=== PATIENT | female | born 1980 ===

== ENCOUNTER 2019-07-11 05:28 | Inpatient (IN) | payer OTHER ==
[2019-07-11] MEDS: LACTATED RINGERS 1,000 ML IV SCH ×2 (05:50→07:08)
[2019-07-11] MEDS ORDERED: LACTATED RINGERS 1,000 ML ONE (05:51)
[2019-07-11 06:24] LABS: Hematocrit 42.9 % (30.3-42.9); Hemoglobin 14.5 gm/dl (10.1-14.3); Mean Corpuscular HGB Conc 34 % (30-34); Mean Corpuscular Volume 87 fl (79-97); Platelet Count 171 K/mm3 (140-440); Red Blood Count 4.93 M/mm3 (3.65-5.03); Red Cell Distribution Width 13.7 % (13.2-15.2)
[2019-07-11] MEDS ORDERED: METOCLOPRAMIDE 10 MG/2 ML INJ IV ONE (06:49)
[2019-07-11] MEDS ORDERED: BICITRA ORAL LIQD 30ML PO ONE (06:49)
[2019-07-11] MEDS ORDERED: FAMOTIDINE 20 MG/2 ML INJ IV ONE (06:49)
[2019-07-11] MEDS ORDERED: OXYTOCIN 20 UNIT/1000ML DRIP 20 UNITS/1,000 ML BAG IV SCH ×2 (07:00→11:00)
--- NOTE | 2019-07-11 07:00 | Anesthesia Consultation ---
Anesthesia Consult and Med Hx Date of service: 07/11/19 - Airway Anesthetic Teeth Evaluation: Good ROM Head & Neck: Adequate Mental/Hyoid Distance: Adequate Mallampati Class: Class II Intubation Access Assessment: Probably Good - Pulmonary Exam CTA: Yes - Cardiac Exam Cardiac Exam: RRR - Pre-Operative Health Status ASA Pre-Surgery Classification: ASA2 Proposed Anesthetic Plan: Spinal - Pulmonary Hx Smoking: No Hx Asthma: No Hx Pneumonia: No - Cardiovascular System Hx Hypertension: No - Hematic Hx Anemia: No - Other Systems Hx Substance Use: No Hx Obesity: No
--- NOTE | 2019-07-11 07:01 | Anesthesia Day of Surgery ---
Anesthesia Day of Surgery - Day of Surgery Patient Examined: Yes Patient H&P Reviewed: Yes Patient is NPO: Yes
--- NOTE | 2019-07-11 08:32 | History and Physical Report ---
History of Present Illness Date of examination: 07/11/19 Date of admission: 07/11/19 05:28 Chief complaint: Here for a repeat . History of present illness: G6. [id number]. Term preg. EDC 07/16/2019. Past History Past Surgical History: cholecystectomy, section - Obstetrical History Expected Date of Delivery: 07/16/19 Actual Gestation: 39 Week(s) 2 Day(s) : 6 Medications and Allergies Allergies Allergy/AdvReac Type Severity Reaction Status Date / Time No Known Allergies Allergy Unverified 07/11/19 06:05 Home Medications Medication Instructions Recorded Confirmed Last Taken Type No Known Home Medications [No 07/11/19 07/11/19 Unknown History Reported Home Medications] Active Meds: Active Medications Oxytocin/Sodium Chloride (Pitocin/Ns 20 Unit/1000ml Drip) 20 units in 1,000 mls @ 0 mls/hr IV TITR ELYSIA Lactated Ringer's (Lactated Ringers) 1,000 mls @ 2,250 mls/hr IV PREOP ELYSIA Stop: 07/12/19 07:27 Last Admin: 07/11/19 07:08 Dose: 2,250 mls/hr Documented by: Review of Systems Ears, nose, mouth and throat: sore throat - Vital Signs Vital signs: Vital Signs Pulse BP 82 137/93 07/11/19 05:59 07/11/19 05:59 Temp Pulse Resp BP Pulse Ox 99.2 F 82 16 137/93 07/11/19 06:08 07/11/19 06:08 07/11/19 06:08 07/11/19 06:08 - Physical Exam Lungs: Positive: Normal air movement Uterus: Positive: normal size, enlarged, normal contour. Negative: tender - Obstetrical FHR: auscultation normal Results Result Diagrams: 07/11/19 05:50 Abnormal lab results 07/11/19 Range/Units 05:50 Hgb 14.5 H (10.1-14.3) gm/dl All other labs normal. Assessment and Plan Term , For elective repeat . patient gave informed consent. - Patient Problems (1) Previous delivery, antepartum Current Visit: Yes Status: Acute
[2019-07-11] MEDS ORDERED: OXYTOCIN 10 UNIT/1 ML INJ ONE (08:56)
[2019-07-11] MEDS ORDERED: dexAMETHasone 20 MG/5 ML VIAL ONE (08:56)
[2019-07-11] MEDS ORDERED: METOPROLOL TARTRATE 5 MG/5 ML INJ IV ONE (08:56)
[2019-07-11] MEDS ORDERED: DEXMEDETOMIDINE 200 MCG/2 ML VIAL IV ONE (08:56)
[2019-07-11] MEDS ORDERED: KETOROLAC 30 MG/1 ML INJ ONE (08:56)
[2019-07-11] MEDS ORDERED: BUPIVACAINE/PF (0.5%) 5 MG/1 ML 30 ML VIAL INFILTRATI ONE (08:56)
[2019-07-11] MEDS ORDERED: HETASTARCH 6% 500 ML IV ONE (09:29)
--- NOTE | 2019-07-11 10:11 | Operative Report ---
Operative Report Operative Report: Date of surgery: July 11, 2019 Preoperative diagnoses: Term , previous section, previous midl ine subumbilical incision Postoperative diagnoses: The same. Operation: Lower segment transverse delivery Surgeon:Leni Mac MD [place] Skin Lifter: Padmini Reynoso CRNA Anesthesia: Spinal block Estimated blood loss:500 mL Complications: None Findings: There was a live baby boy in vertex, weight 7 pounds 11 ounces and Apgars 8/9. Both ovaries and fallopian tubes were grossly normal. The uterus was also grossly normal. No peritoneal adhesions were found within the pelvis. Procedure in detail: The patient was taken to the operating room and given a spinal block. Patient was placed in the straight supine position and a Zambrano catheter was inserted. The patient was prepped in the abdomen. The drapes were placed. A timeout was done. With the go ahead from the commercial crabber, a subumbilical midline incision was made. This incision was carried across the subcutaneous layer to the fascia which was also divided transversely. The recti abdominis muscle flaps were stripped from the fascia using a combination of blunt and sharp dissections. The muscles were in the midline to gain access to the anterior parietal peritoneum which was divided after excluding any underlying viscera. The access to the peritoneal cavity was then widened by manual stretching. The bladder blade was applied. The utero vesicle peritoneal flap was divided transversely allowing the bladder to be displaced caudally. The uterine incision was placed in the lower segment transversely. The uterine incision was carried to the decidual layer. The uterine incision was extended on both sides using the bandage scissors. The amniotic sac was ruptured with clear fluid. The head was lifted out of the false maternal pelvis and delivered through the incision using fundal pressure. The airways were bulb suctioned beginning with the mouth. Continuing fundal pressure combined with traction on the mandibular processes of the jaw delivered the rest of the baby. The umbilical cord was double clamped and divided. The baby was carefully transferred to the pediatric team. The placenta was manually removed from the uterine cavity. The uterine cavity was explored and was empty of any placental remnants. The uterine incision was repaired in 2 layers with #1 Vicryl. The surgical line on the uterus was hemostatic. Blood and clots were cleared from the peritoneal cavity. The anterior parietal peritoneum and the fascia were repaired en bloc with #1 looped PDS. The subcutaneous layer was made hemostatic using the Bovie and coapted with 4 stitches of #1 Vicryl before the skin was closed subcuticularly with 4-0 Vicryl. There were no complications. The estimated blood loss was 500 mL. All sponges and instrument counts were correct. Patient was safely transferred to the recovery room.
[2019-07-11] MEDS ORDERED: ACETAMINOPHEN 325 MG TAB PO PRN (10:30)
[2019-07-11] MEDS ORDERED: WITCH HAZEL/ GLYCERIN PAD TP PRN (10:30)
[2019-07-11] MEDS ORDERED: NALOXONE 0.4 MG/1 ML INJ IV PRN (10:30)
[2019-07-11] MEDS ORDERED: LANOLIN/ZINC/DIMETHICONE (LANSINOH) 7 GM TP PRN (10:30)
--- NOTE | 2019-07-11 10:35 | Post Anesthesia Evaluation ---
- Post Anesthesia Evaluation Patient Participated: Yes Airway Patent: Yes Stable Respiratory Function: Yes Nausea/Vomiting: No Temp > 96.8F: Yes Pain Manageable: Yes Adequeate Hydration: Yes Anesthesia Complications: No Block Receding Appropriately: Yes
[2019-07-11] MEDS ORDERED: ONDANSETRON 4 MG/2 ML INJ IV PRN (11:00)
[2019-07-11] MEDS ORDERED: MORPHINE 4 MG/1 ML INJ IV PRN (11:00)
[2019-07-11] MEDS: ceFAZolin/NS 1 GM/50 ML 1 GM/50 ML BAG IV SCH ×2 (14:58→23:47)
[2019-07-11] MEDS: KETOROLAC 30 MG/1 ML INJ IV PRN ×2 (14:58→23:41)
[2019-07-12 03:36] LABS: Hematocrit 31.5 % (30.3-42.9); Hemoglobin 10.5 gm/dl (10.1-14.3)
[2019-07-12] MEDS: HYDROcodone/ACETAMINOPHEN 5-325 MG TAB PO PRN ×3 (06:03→22:31)
[2019-07-12] MEDS: IBUPROFEN 800 MG TAB PO PRN ×2 (11:40→18:24)
--- NOTE | 2019-07-12 11:40 | Progress Note ---
Assessment and Plan - Patient Problems (1) Status post repeat low transverse section Current Visit: Yes Status: Acute Plan to address problem: Continue routine PP orders Keep dressing clean and dry, remove drsg on POD#2 Anticipate d/c home in 24-48 hrs (2) Anemia Current Visit: Yes Status: Acute Qualifiers: Anemia type: other cause Other causes of anemia: acute posthemorrhagic Qualified Code(s): D62 - Acute posthemorrhagic anemia Plan to address problem: Asymptomatic Continue daily oral iron supplementation as directed Increase iron rich foods into diet Subjective - Subjective Date of service: 07/12/19 Principal diagnosis: S/P RC/S/ POD#1 Interval history: See admission H & P; OB operative summary and PP progress notes Patient reports: appetite normal, voiding normally, pain well controlled (with medications), flatus, ambulating normally, no bowel movement [place]: doing well, bottle feeding (and ) Objective - Vital Signs Latest vital signs: Vital Signs Temp Pulse Resp BP Pulse Ox 07/12/19 09:00 97.7 F 84 18 125/74 07/12/19 04:20 98.5 F 68 17 107/64 98 07/12/19 00:00 98.5 F 72 17 117/68 98 07/11/19 20:23 98.8 F 68 18 115/62 98 07/11/19 16:45 97 F L 59 L 18 120/68 07/11/19 12:25 98.1 F 59 L 18 102/60 97 Intake and Output 07/11/19 07/12/19 07/12/19 23:59 07:59 15:59 Intake Total 390 320 Output Total 750 150 300 Balance -360 -150 20 Intake: Oral 90 320 Intake, Free Water 300 Output: Urine 750 150 300 Indwelling Catheter 750 Void 150 300 Other: Total, Intake Amount 90 320 Total, Output Amount 300 150 300 # Voids Void 2 - Exam Breasts: Present: normal Cardiovascular: Present: Normal S1 Lungs: Present: Normal air movement Abdomen: Present: soft, tenderness Uterus: Present: firm, fundal height below umbilicus (U-1) Deep Tendon Reflex Grade: Normal +2 Incision: Present: dressed (no drainage or bleeding noted)
[2019-07-12] MEDS: PRENATAL VIT27-FE FUMARATE-FOLIC ACID VIT TAB PO SCH (11:42)
[2019-07-12] MEDS: FERROUS SULFATE 325 MG TAB PO SCH (11:42)
[2019-07-13] MEDS: IBUPROFEN 800 MG TAB PO PRN ×2 (00:39→08:00)
[2019-07-13] MEDS: HYDROcodone/ACETAMINOPHEN 5-325 MG TAB PO PRN ×2 (05:53→12:41)
[2019-07-13] MEDS: FERROUS SULFATE 325 MG TAB PO SCH (10:03)
[2019-07-13] MEDS: PRENATAL VIT27-FE FUMARATE-FOLIC ACID VIT TAB PO SCH (10:03)
--- NOTE | 2019-07-13 11:44 | Progress Note ---
Assessment and Plan A: PP Day #2 Stable P: Follow Routine PostOp Orders D/C home today per patient request RTO in One Week Subjective - Subjective Date of service: 07/13/19 Principal diagnosis: S/P RC/S/ POD#1 Patient reports: appetite normal, voiding normally, pain well controlled, flatus, ambulating normally [place]: doing well, bottle feeding (and ) Objective - Vital Signs Latest vital signs: Vital Signs Temp Pulse Resp Resp BP BP Pulse Ox 07/13/19 07:37 97.7 F 73 16 102/62 97 07/13/19 05:53 18 07/13/19 00:39 18 07/12/19 23:46 98.3 F 84 18 108/67 96 07/12/19 22:31 18 07/12/19 15:35 97.7 F 75 20 111/71 Intake and Output 07/12/19 07/13/19 07/13/19 22:59 06:59 14:59 Intake Total 480 120 240 Output Total 500 Balance -20 120 240 Intake: Oral 480 120 240 Output: Urine 500 Void 500 Other: Total, Intake Amount 120 120 240 Total, Output Amount 500 # Voids Indwelling Catheter 0 Void 1 1 1 - Exam Breasts: Present: normal Cardiovascular: Present: Regular rate Lungs: Present: Clear to auscultation, Normal air movement Abdomen: Present: normal appearance, soft, normal bowel sounds Uterus: Present: normal, firm, fundal height below umbilicus Extremities: Present: normal Incision: Present: normal, dry, intact, other (vertical incision)
--- NOTE | 2019-07-13 11:45 | Discharge Summary ---
Providers - Providers Date of Admission: 07/11/19 05:28 Date of discharge: 07/13/19 Attending physician: SUZANNE JENSEN MD Primary care physician: SUZANNE JENSEN MD Hospitalization Reason for admission: section Delivery: Procedure: bilateral tubal ligation, vertical Episiotomy: none Laceration: none Incision: normal, dry, intact Other procedures: none complications: none Discharge diagnosis: IUP at term delivered baby: male Condition at discharge: Good Disposition: DC-01 TO HOME OR SELFCARE Plan - Discharge Medications Prescriptions: HYDROcodone/APAP 5-325 [[place] 5/325] 1 - 2 each PO Q4HR PRN #30 tablet PRN Reason: Pain - Provider Discharge Summary Activity: routine, no sex for 6 weeks, no heavy lifting 4 weeks, no strenuous exercise Diet: routine Instructions: routine Additional instructions: [] Smoking cessation referral if applicable(refer to patient education folder for contact #) [] Refer to [facility]'s [facility] Booklet Call your doctor immediately for: * Fever > 100.5 * Heavy vaginal bleeding ( >1 pad per hour) * Severe persistent headache * Shortness of breath * Reddened, hot, painful area to leg or breast * Drainage or odor from incision. * Keep incision clean and dry at all times and follow doctor's instructions re garding bathing/showering - Follow up plan Follow up: SUZANNE JENSEN MD [Primary Care Provider] - 7 Days
[2019-07-13 15:12] VITALS: BP 123/80
== END 2019-07-13 15:00 | disposition home or self-care (01) | DRG 784 ==
LOC: APU 05:28 → OB 12:56
PROVIDERS: ADMIT Obstetrics & Gynecology; ATTEND Obstetrics & Gynecology
PROC: 10D00Z1 Extraction of Products of Conception, Low, Open Approach (ICD-10-PCS; principal; 2019-07-11)
PROC: 0UB70ZZ Excision of Bilateral Fallopian Tubes, Open Approach (ICD-10-PCS; 2019-07-11)
DX: O34.211 Maternal care for low transverse scar from previous cesarean delivery (principal); D62 Acute posthemorrhagic anemia; O82 Encounter for cesarean delivery without indication; Z3A.39 39 weeks gestation of pregnancy; Z37.0 Single live birth; Z90.49 Acquired absence of other specified parts of digestive tract; Z30.2 Encounter for sterilization; O90.81 Anemia of the puerperium
CPT/HCPCS: 36415; 85014; 85018; 85027; 86592; 86850; 86900; 86901; G0378; J0690; J1100; J1885; J2270; J2590; J2765; J3490; J7120

== ENCOUNTER 2020-12-05 08:52 | Inpatient (IN) | payer MEDICAID ==
[2020-12-05] MEDS ORDERED: KETOROLAC 30 MG/1 ML INJ ONE (08:59)
[2020-12-05] MEDS ORDERED: dexAMETHasone 20 MG/5 ML VIAL ONE ×2 (08:59→14:19)
[2020-12-05] MEDS ORDERED: BUPIVACAINE/PF (0.5%) 5 MG/1 ML 30 ML VIAL INFILTRATI ONE (08:59)
[2020-12-05] MEDS ORDERED: NALOXONE 0.4 MG/1 ML INJ IV PRN ×2 (09:00→17:44)
[2020-12-05] MEDS ORDERED: HYDROmorphone 1 MG/1 ML INJ IV PRN (09:00)
[2020-12-05] MEDS ORDERED: ONDANSETRON 4 MG/2 ML INJ IV PRN (09:00)
[2020-12-05] MEDS ORDERED: NalbUPHINE 10 MG/1 ML INJ IV PRN (09:00)
[2020-12-05] MEDS ORDERED: PROMETHAZINE 25 MG TAB PO PRN (09:00)
[2020-12-05] MEDS ORDERED: PROMETHAZINE 25 MG RECT SUPP PR PRN (09:00)
[2020-12-05] MEDS ORDERED: diphenhydrAMINE 50 MG/ML VIAL IV PRN (09:00)
[2020-12-05] MEDS ORDERED: LACTATED RINGERS 2,000 ML ONE (10:35)
--- NOTE | 2020-12-05 11:22 | History and Physical Report ---
History of Present Illness Date of examination: 12/05/20 Date of admission: 12/05/20 08:52 Chief complaint: ERCS with BTL History of present illness: 40yo Previous c/sectionx2 Multiparity desires permanent surgical sterilization Past History Past Surgical History: section Family/Genetic History: none Social history: no significant social history - Obstetrical History Expected Date of Delivery: 12/08/20 Actual Gestation: 39 Week(s) 4 Day(s) : 7 Para: 5 Medications and Allergies Allergies Allergy/AdvReac Type Severity Reaction Status Date / Time pollen extracts Allergy Itching Verified 12/05/20 11:49 cat dander AdvReac Unknown Verified 12/05/20 11:49 dog dander AdvReac Unknown Verified 12/05/20 11:49 Home Medications Medication Instructions Recorded Confirmed Last Taken Type HYDROcodone/APAP 5-325 [[place] 1 - 2 each PO Q4HR PRN #30 tablet 07/11/19 Unknown Rx 5/325] Active Meds: Active Medications Diphenhydramine HCl (Diphenhydramine 50 Mg/Ml Vial) 12.5 mg IV Q2H PRN PRN Reason: Itching Hydromorphone HCl (Hydromorphone 1 Mg/1 Ml Inj) 0.5 mg IV Q4H PRN PRN Reason: breakthrough pain > 7/10 Nalbuphine HCl (Nalbuphine 10 Mg/1 Ml Inj) 2.5 mg IV Q2H PRN PRN Reason: Itching Naloxone HCl (Naloxone 0.4 Mg/1 Ml Inj) 0.2 mg IV Q2MIN PRN PRN Reason: Res Rate </= 8 or 02 SAT < 92% Ondansetron HCl (Ondansetron 4 Mg/2 Ml Inj) 4 mg IV Q8H PRN PRN Reason: Nausea And Vomiting Promethazine HCl (Promethazine 25 Mg Tab) 25 mg PO Q6H PRN PRN Reason: Nausea And Vomiting Promethazine HCl (Promethazine 25 Mg Rect Supp) 25 mg ID Q6H PRN PRN Reason: Nausea And Vomiting - Vital Signs Vital signs: Vital Signs Pulse BP 94 H 118/84 12/05/20 10:27 12/05/20 10:27 Temp Pulse Resp BP Pulse Ox 94 H 118/84 98 12/05/20 11:13 12/05/20 10:27 12/05/20 11:13 - Physical Exam Breasts: Positive: deferred Cardiovascular: Regular rate Abdomen: Positive: normal appearance, soft, normal bowel sounds Genitourinary (Female): Positive: normal external genitalia Vulva: both: normal Vagina: Positive: normal moisture Adnexa: both: normal Extremities: Positive: normal Deep Tendon Reflex Grade: Normal +2 - Obstetrical FHR: category 1 Results Result Diagrams: 12/05/20 11:05 All other labs normal. Assessment and Plan NPO, demand generation manager to OR for procedure informed consent Leni Brewer MD
[2020-12-05] MEDS ORDERED: FAMOTIDINE 20 MG/2 ML INJ IV SCH (11:30)
[2020-12-05] MEDS ORDERED: LACTATED RINGERS 1,000 ML IV SCH (11:30)
[2020-12-05] MEDS ORDERED: METOCLOPRAMIDE 10 MG/2 ML INJ IV SCH (11:30)
[2020-12-05] MEDS ORDERED: BICITRA ORAL LIQD 30ML PO SCH (11:30)
[2020-12-05] MEDS ORDERED: OXYTOCIN DRIP 30 UNITS/500 ML BAG IV SCH (12:00)
[2020-12-05] MEDS ORDERED: ceFAZolin/Water 2 GM/20 ML 2 GM/20 ML SYRINGE IV ONE (12:47)
[2020-12-05 13:16] LABS: Basophils % (Auto) 0.3 % (0.0-1.8); Eosinophils % (Auto) 0.2 % (0.0-4.3); Hematocrit 48.8 % (30.3-42.9); Hemoglobin 16.5 gm/dl (10.1-14.3); Lymphocytes # (Auto) 1.3 K/mm3 (1.2-5.4); Lymphocytes % (Auto) 20.2 % (13.4-35.0); Mean Corpuscular HGB Conc 34 % (30-34); Mean Corpuscular Volume 89 fl (79-97); Monocytes # (Auto) 0.5 K/mm3 (0.0-0.8); Monocytes % (Auto) 7.4 % (0.0-7.3); Platelet Count 168 K/mm3 (140-440); Red Blood Count 5.49 M/mm3 (3.65-5.03); Red Cell Distribution Width 14.4 % (13.2-15.2)
[2020-12-05] MEDS ORDERED: ESMOLOL 100 MG/10 ML INJ IV ONE (13:52)
[2020-12-05] MEDS ORDERED: SODIUM CHLORIDE 0.9% IRR 1,500 ML BOTTLE IR ONE (14:00)
[2020-12-05] MEDS ORDERED: WATER FOR IRRIG STERILE 1,500 ML BOTTLE IR ONE (14:00)
--- NOTE | 2020-12-05 14:07 | Anesthesia Day of Surgery ---
Anesthesia Day of Surgery - Day of Surgery Patient Examined: Yes Patient H&P Reviewed: Yes Patient is NPO: Yes Beta Blockers: No Cardiac Clearance: No Pulmonary Clearance: No Khalif's Test: N/A
--- NOTE | 2020-12-05 14:08 | Anesthesia Consultation ---
Anesthesia Consult and Med Hx Date of service: 12/05/20 - Airway Anesthetic Teeth Evaluation: Good ROM Head & Neck: Adequate Mental/Hyoid Distance: Adequate Mallampati Class: Class II Intubation Access Assessment: Probably Good - Pulmonary Exam CTA: Yes - Cardiac Exam Cardiac Exam: RRR - Pre-Operative Health Status ASA Pre-Surgery Classification: ASA2 Proposed Anesthetic Plan: Spinal Nerve Block: TAP - Pulmonary Hx Smoking: No Hx Asthma: No COPD: No Hx Pneumonia: No Hx Sleep Apnea: No - Cardiovascular System Hx Hypertension: No Hx Heart Attack/AMI: No Hx Angina: No - Central Nervous System Hx Seizures: No Hx Psychiatric Problems: No - Gastrointestinal Hx Gastroesophageal Reflux Disease: No - Endocrine Hx Renal Disease: No Hx End Stage Renal Disease: No Hx Liver Disease: No Hx Insulin Dependent Diabetes: No Hx Non-Insulin Dependent Diabetes: No Hx Hypothyroidism: No Hx Hyperthyroidism: No - Hematic Hx Anemia: No Hx Sickle Cell Disease: No - Other Systems Hx Alcohol Use: No Hx Substance Use: No Hx Obesity: No - Additional Comments Anesthesia Medical History Comments: Previous C/S x2
--- NOTE | 2020-12-05 14:09 | Progress Note ---
Spinal Anesthesia Block - Spinal Anesthesia Block Start Time: 13:25 Stop Time: 13:35 Performed by:: JANUSZ MEDLEY ([facility]) Procedure: Spinal anesthesia block is being performed for [C/S]. H&P, labs have been reviewed. Patient's questions and concerns have been answered. Informed consent has been performed. Timeout has was performed. Patient in sitting position on side of bed. Sterile prep and drape was performed. 3 mL 1% lid ocaine skin wheal at L [3]-L [4]. Needle introducer advanced. 25-gauge spinal needle advanced without success. 3 mL 1% lidocaine skin wheal at L [2]-L [3]. Needle introducer advanced. 25-gauge spinal needle advanced, [+] CSF [-] blood. [Marcaine 10mg and Precedex 5mcg] Spinal dose was given. All needles removed. Patient tolerated procedure well.
[2020-12-05] MEDS ORDERED: PHENYLEPHRINE/NS 1,000 MCG/10 ML SYRINGE (OR USE) IV ONE (14:19)
[2020-12-05] MEDS ORDERED: fentaNYL 100 MCG/2 ML INJ ONE (14:31)
--- NOTE | 2020-12-05 14:54 | Procedure Note ---
OB Delivery Note - Delivery Surgeon: SUZANNE JENSEN Estimated blood loss: other (900ml) - Section Preop diagnosis: repeat , desires sterilization Postop diagnosis: same section procedure: repeat low transverse, bilateral tubal ligation Disposition: PACU Complications: none Narrative: Preop diagnosis: IUP at 39.4 weeks, previous c/sectionx2, multiparity desires permanent sterilization Postop diagnosis: Same Procedure: Repeat low transverse section via Pfannenstiel incision with Mofied Linnette Bilateral Tubal ligation Surgeon: Dr. Suzanne Jensen Anesthesia spinal Complications none EBL 900ml IV fluids 1700mL Urine output 50mL, clear Drains Zambrano to gravity Findings: Viable male with weight 3690gms and 9/9, normal uterus tubes and ovaries bilaterally Procedure: Patient was consented in OB triage, taken to the operating room where she received excellent spinal anesthesia. She was then placed in the dorsal supine position with a leftward tilt. The abdomen was prepped and draped in a sterile fashion, and a timeout was verified. Adequate anesthesia was c onfirmed prior to the skin incision. A Pfannenstiel skin incision was made with a scalpel taken down to the underlying structures and the fascia was incised in the midline. The incision was extended laterally with curved Roa scissors, the superior and inferior aspects of the fascial incisions were grasped with Eugene clamps and the rectus muscles dissected sharply. The abdomen was entered blun tly in the midline carried down inferiorly with good visualization of the bladder. The vesicouterine peritoneum was tented with Swiss forceps and incised in the midline with Metzenbaum scissors and the vesicouterine peritoneum taken down sharply. The uterine incision was then made sharply with a scalpel. The inferior and superior aspect of the uterine incisions were extended bluntly, the baby's head was delivered atraumatically. The remainder of the delivery was uncomplicated, no nuchal cord. The cord was clamped and cut and baby handed to waiting NICU team. An intact placenta with three-vessel cord delivered manually. The uterus was then cleared of all clots and debris and the uterus exteriorized. The uterine incision was closed in 2 layers of 0 vicryl with excellent hemostasis. Attention then turned to the fallopian tubes which were suture ligated in the usual fashion with excellent hemostasis. The abdomen was then irrigated with warm normal saline and the uterus placed back into the abdomen atraumatically. A second look at the uterine incision assured hemostasis. The peritoneum was closed with 3-0 Vicryl, the rectus muscles approximated with 3-0 Vicryl, and the fascia closed with 0 Vicryl in the usual fashion. The subcuticular structures were closed with interrupted sutures of 3- 0 Vicryl and the skin closed with 4-0 Monocryl. A pressure dressing was applied. All sponge needle and instrument counts were correct x2. There were no complications. Mom and baby stable to PACU. EBL 900 mL Leni Jensen MD
[2020-12-05] MEDS ORDERED: KETOROLAC 30 MG/1 ML INJ IV PRN (17:44)
[2020-12-05] MEDS ORDERED: IBUPROFEN 600 MG TAB PO PRN (17:44)
[2020-12-05] MEDS ORDERED: WITCH HAZEL/ GLYCERIN PAD TP PRN (17:44)
[2020-12-05] MEDS ORDERED: LANOLIN/ZINC/DIMETHICONE (LANSINOH) 7 GM TP PRN (17:44)
[2020-12-05] MEDS ORDERED: MORPHINE 2 MG/1 ML INJ IV PRN (17:44)
[2020-12-05] MEDS ORDERED: MORPHINE 4 MG/1 ML INJ IV PRN (17:44)
--- NOTE | 2020-12-06 04:40 | Progress Note ---
Subjective - Subjective Date of service: 12/06/20 Interval history: POD#1 no complaints VSS PE WNL Plan for continued postop care Leni Brewer MD Patient reports: appetite normal, voiding normally, pain well controlled : doing well Objective - Vital Signs Latest vital signs: Vital Signs Temp Pulse Resp BP BP Pulse Ox Pulse Ox 12/06/20 02:07 20 12/05/20 23:53 98.2 F 58 L 16 106/63 97 12/05/20 21:37 20 12/05/20 19:50 98.0 F 69 16 111/61 97 12/05/20 19:45 99 12/05/20 16:50 97.8 F 60 18 98/55 97 97 12/05/20 15:45 98.3 F 73 18 91/52 99 12/05/20 15:30 80 16 97/41 99 12/05/20 15:15 75 14 96/55 99 12/05/20 15:00 73 15 101/57 99 12/05/20 14:55 106 H 18 109/73 99 12/05/20 14:50 75 16 104/67 99 12/05/20 14:46 97.8 F 75 16 104/67 99 12/05/20 11:13 94 H 98 12/05/20 11:08 94 H 99 12/05/20 11:03 89 99 12/05/20 10:58 95 H 99 12/05/20 10:53 91 H 99 12/05/20 10:48 89 99 12/05/20 10:43 94 H 99 12/05/20 10:38 90 98 12/05/20 10:33 89 99 12/05/20 10:30 98.1 F 97 H 20 118/84 99 12/05/20 10:28 97 H 99 12/05/20 10:27 94 H 118/84 Intake and Output 12/05/20 12/05/20 12/06/20 15:59 23:59 07:59 Intake Total 1800 240 Output Total 350 400 800 Balance 1450 -400 -560 Intake: IV 1800 Intake, Free Water 240 Output: Urine 350 400 800 Indwelling Catheter 400 800 Other: Total, Output Amount 400 800 Weight 76.204 kg - Exam Breasts: Present: deferred Cardiovascular: Present: Regular rate Lungs: Present: Clear to auscultation Abdomen: Present: normal appearance, soft, normal bowel sounds Uterus: Present: fundal height below umbilicus Extremities: Present: normal Deep Tendon Reflex Grade: Normal +2 Incision: Present: normal, intact, dressed - Labs Labs: Abnormal lab results 12/05/20 Range/Units 11:05 RBC 5.49 H (3.65-5.03) M/mm3 Hgb 16.5 H (10.1-14.3) gm/dl Hct 48.8 H (30.3-42.9) % [place] % (Auto) 7.4 H (0.0-7.3) % Seg Neutrophils % 71.9 H (40.0-70.0) %
[2020-12-06] MEDS: HYDROcodone/ACETAMINOPHEN 5-325 MG TAB PO PRN ×3 (04:46→23:24)
[2020-12-06 07:45] LABS: Hematocrit 33.7 % (30.3-42.9); Hemoglobin 11.4 gm/dl (10.1-14.3)
[2020-12-06] MEDS: IBUPROFEN 800 MG TAB PO PRN (18:06)
[2020-12-07] MEDS: IBUPROFEN 800 MG TAB PO PRN (04:35)
[2020-12-07] MEDS: HYDROcodone/ACETAMINOPHEN 5-325 MG TAB PO PRN ×2 (11:06→17:29)
--- NOTE | 2020-12-07 12:43 | Progress Note ---
Assessment and Plan A: /postop day 2 S/P repeat LTCS with BTL. P: Encouraged patient to ambulate. Continue routine /postop care. Subjective - Subjective Date of service: 12/07/20 Principal diagnosis: /postop day 2 S/P repeat LTCS with BTL Patient reports: appetite normal, voiding normally, pain well controlled, flatus, ambulating normally, no dizzy ambulation, no nauseated Objective - Vital Signs Latest vital signs: Vital Signs Temp Pulse Resp BP BP Pulse Ox Pulse Ox 12/07/20 11:06 16 12/07/20 07:46 98.0 F 62 19 114/63 99 12/07/20 04:35 20 12/06/20 23:42 97.5 F L 67 20 123/75 99 12/06/20 23:24 16 12/06/20 19:50 99 12/06/20 18:29 99 12/06/20 16:37 99 12/06/20 16:29 98 F 63 18 110/61 98 12/06/20 14:00 99 Intake and Output 12/06/20 12/07/20 12/07/20 23:59 07:59 15:59 Intake Total 1080 480 240 Balance 1080 480 240 Intake: Oral 600 480 240 Intake, Free Water 480 Other: Total, Intake Amount 240 240 120 # Voids Void 1 1 1 - Exam Cardiovascular: Present: Regular rate Lungs: Present: Clear to auscultation Abdomen: Present: normal appearance, soft, normal bowel sounds. Absent: distention, tenderness, guarding, rigidity Uterus: Present: normal, firm, fundal height below umbilicus. Absent: bogginess, tenderness Extremities: Present: normal. Absent: tenderness, edema Incision: Present: dry, dressed
[2020-12-07 17:12] VITALS: BP 108/65
--- NOTE | 2020-12-07 17:45 | Discharge Summary ---
Providers - Providers Date of Admission: 12/05/20 08:52 Date of discharge: 12/07/20 Attending physician: SUZANNE JENSEN MD Primary care physician: SUZANNE JENSEN MD Hospitalization Reason for admission: section Delivery: Procedure: repeat low transverse Incision: normal, dry, intact Other procedures: tubal ligation complications: none Discharge diagnosis: IUP at term delivered [place] baby: male Pertinent studies: Labs Hospital course: Stable hospital course. Condition at discharge: Good Disposition: 01 HOME / SELF CARE / HOMELESS - Discharge Diagnoses (1) Term delivered Status: Acute Plan - Discharge Medications Prescriptions: Ibuprofen [Motrin] 600 mg PO Q8H PRN #60 tablet PRN Reason: Pain oxyCODONE /ACETAMINOPHEN [Percocet 5/325] 1 tab PO Q6HR PRN #20 tablet PRN Reason: Pain - Provider Discharge Summary Activity: routine, no sex for 6 weeks, no heavy lifting 4 weeks, no strenuous exercise Diet: routine Instructions: routine Additional instructions: Please continue taking your vitamins and iron supplements at home. Follow up at [facility] in 1 week. Call your doctor immediately for: * Fever > 100.5 * Heavy vaginal bleeding ( >1 pad per hour) * Severe persistent headache * Shortness of breath * Reddened, hot, painful area to leg or breast * Drainage or odor from incision. * Keep incision clean and dry at all times and follow doctor's instructions regarding bathing/showering - Follow up plan Follow up: PRIMARY CAREMD [Referring] - 7 Days Forms: [facility] Discharge Summary
== END 2020-12-07 18:30 | disposition home or self-care (01) | DRG 766 ==
LOC: APU 08:52 → OB 16:31
PROVIDERS: ADMIT Obstetrics & Gynecology; ATTEND Obstetrics & Gynecology
PROC: 10D00Z1 Extraction of Products of Conception, Low, Open Approach (ICD-10-PCS; principal; 2020-12-05)
PROC: 0UB70ZZ Excision of Bilateral Fallopian Tubes, Open Approach (ICD-10-PCS; 2020-12-05)
DX: O34.211 Maternal care for low transverse scar from previous cesarean delivery (principal); Z3A.39 39 weeks gestation of pregnancy; Z37.0 Single live birth; Z20.822 Contact with and (suspected) exposure to COVID-19; J30.1 Allergic rhinitis due to pollen; Z30.2 Encounter for sterilization
CPT/HCPCS: 36415; 85014; 85018; 85025; 86850; 86900; 86901; 88302; 99211; G0378; G0463; J1100; J1885; J2270; J2370; J2765; J3010; J3490; U0003